=== PATIENT | male | born 1965 | race African-American/Black ===

== ENCOUNTER 2021-03-02 13:02 | Emergency (ER) | payer MEDICAID ==
[~2021-03-02] VITALS: Ht 182.9 cm; Wt 79.5 kg
[2021-03-02 13:16] VITALS: BP 108/71
== END 2021-03-02 13:51 | disposition home or self-care (01) ==
LOC: EMS 13:02
DX: K04.7 Periapical abscess without sinus (principal)
CPT/HCPCS: 99283; Z7502